=== PATIENT | female | born 1990 | race Asian ===

== ENCOUNTER 2017-08-03 05:40 | Inpatient (IN) | payer OTHER, SELFPAY ==
[~2017-08-03] VITALS: Ht 198.1 cm; Wt 64.0 kg
[2017-08-03] MEDS ORDERED: LR 1,000 ML IV SCH (06:57)
[2017-08-03] MEDS ORDERED: OXYTOCIN/0.9 % SODIUM CHLORIDE 1,000 ML IV SCH (06:57)
[2017-08-03] MEDS ORDERED: DINOPROSTONE 10 MG SUPP VG ONE (07:00)
[2017-08-03] MEDS ORDERED: TERBUTALINE SULFATE 1 MG/ML VIAL SUBCUT ONE (07:00)
[2017-08-03] MEDS ORDERED: NALBUPHINE HCL 10 MG/ML AMP IVP PRN (07:00)
[2017-08-03] MEDS ORDERED: OXYTOCIN/0.9 % SODIUM CHLORIDE 1,000 ML IV ONE ×2 (07:31→12:02)
[2017-08-03 07:40] LABS: BASOPHILS % (AUTO) 0.4 % (0.0-2.0); EOSINOPHILS % (AUTO) 0.4 % (0.0-4.0); HEMATOCRIT 28.5 % (36-48); HEMOGLOBIN 9.5 g/dL (12.0-16.0); LYMPHOCYTES # (AUTO) 1.4 K/uL (1.0-5.5); LYMPHOCYTES % (AUTO) 20.6 % (20.5-51.5); MEAN CORPUSCULAR HEMOGLOBIN 30 pg (27-31); MEAN CORPUSCULAR HGB CONC 33 % (32-36); MEAN CORPUSCULAR VOLUME 89 fL (79.0-98.0); MONOCYTES # (AUTO) 0.5 K/uL (0.0-1.0); MONOCYTES % (AUTO) 7.8 % (1.7-9.3); NEUTROPHILS % (AUTO) 70.8 % (40.0-70.0); PLATELET COUNT (AUTO) 285 K/uL (130-430); RED CELL DISTRIBUTION WIDTH 12.9 % (9.0-15.0); WHITE BLOOD COUNT (AUTO) 6.9 K/uL (4.8-10.8)
[2017-08-03] MEDS ORDERED: LR 500 ML IV ONE (08:10)
[2017-08-03] MEDS ORDERED: fentaNYL CITRATE/PF 100 MCG/2 ML AMP ONE (08:11)
[2017-08-03] MEDS ORDERED: ROPIVACAINE 0.2% 100 ML ONE (08:11)
[2017-08-03] MEDS ORDERED: FENT2mCg/mL-ROPIVA0.2%/NS EPID 150 ML EP SCH (08:15)
[2017-08-03 10:07] VITALS: BP_SYST 96
[2017-08-03] MEDS ORDERED: DERMOPLAST SPRAY TP PRN (12:15)
[2017-08-03] MEDS ORDERED: DOCUSATE SODIUM 100 MG CAPSULE PO PRN (12:15)
[2017-08-03] MEDS ORDERED: WITCH HAZEL LEAF 1 MED.PAD MED.PAD TP PRN (12:15)
[2017-08-03] MEDS ORDERED: METHYLERGONOVINE MALEATE 0.2 MG TABLET PO PRN (12:15)
[2017-08-03] MEDS ORDERED: HYDROCORTISONE 0.5%, 28.35 GM TOPICAL CREAM TP PRN (12:15)
[2017-08-03] MEDS ORDERED: OXYCODONE/ACETAMINOPHEN 5-325 TABLET PO PRN ×2 (12:15)
[2017-08-03] MEDS ORDERED: LANOLIN 7 GM OINT. TP PRN (12:15)
[2017-08-03] MEDS ORDERED: ANUSOL 1 EA SUPP.RECT (PREPARATION H) RC PRN (12:15)
[2017-08-03] MEDS ORDERED: SENNOSIDES/DOCUSATE SODIUM 1 TAB TABLET(SENOKOT-S) PO PRN (12:15)
[2017-08-03] MEDS: IBUPROFEN 600 MG TABLET PO SCH ×2 (17:04→23:21)
[2017-08-03] MEDS ORDERED: TEMAZEPAM 15 MG CAPSULE PO PRN (21:00)
[2017-08-04 05:46] LABS: HEMATOCRIT 30.8 % (36-48); HEMOGLOBIN 10.8 g/dL (12.0-16.0)
[2017-08-04] MEDS: IBUPROFEN 600 MG TABLET PO SCH (05:52)
== END 2017-08-04 12:00 | disposition home or self-care (01) | DRG 775 ==
LOC: SPU 05:40
PROVIDERS: ADMIT Obstetrics & Gynecology; ATTEND Obstetrics & Gynecology
PROC: 10E0XZZ Delivery of Products of Conception, External Approach (ICD-10-PCS; principal; 2017-08-03)
PROC: 3E0P7VZ Introduction of Hormone into Female Reproductive, Via Natural or Artificial Opening (ICD-10-PCS; 2017-08-03)
PROC: 0UQGXZZ Repair Vagina, External Approach (ICD-10-PCS; 2017-08-03)
PROC: 3E0R3BZ Introduction of Anesthetic Agent into Spinal Canal, Percutaneous Approach (ICD-10-PCS; 2017-08-03)
PROC: 00HU33Z Insertion of Infusion Device into Spinal Canal, Percutaneous Approach (ICD-10-PCS; 2017-08-03)
DX: O71.4 Obstetric high vaginal laceration alone (principal); Z3A.39 39 weeks gestation of pregnancy; Z37.0 Single live birth
CPT/HCPCS: 36415; 85018-TC; 85025; 86886; 86900; 86901; J2590; J2795; J3010; J7120